=== PATIENT | male | born 1960 | race Caucasian/White ===

== ENCOUNTER 2019-05-18 10:42 | Outpatient (CLI) | payer MEDICARE, SELFPAY ==
--- NOTE | ~2019-05-18 | US_ITS ---
EXAMINATION: US venous doppler LE RT EXAM DATE: 05/18/2019 11:37 INDICATION: Right lower extremity pain. TECHNIQUE: Multiple grayscale, color flow and Doppler images of the right lower extremity deep venous system were obtained and reviewed. There is no prior study for comparison. FINDINGS: The right common femoral, femoral and profunda veins demonstrate normal color flow, respira tory variation, augmentation and compressibility. Compressibility, color flow confirmed within the r ight popliteal, posterior tibial, peroneal, and greater saphenous veins. IMPRESSION: 1. No right lower extremity deep venous thrombosis. Reviewed, dictated and finalized at location A.
== END 2019-05-18 10:43 | disposition home or self-care (01) ==
PROVIDERS: PCP Internal Medicine; Visit Provider Internal Medicine
DX: M79.604 Pain in right leg (principal)
CPT/HCPCS: 93971

== ENCOUNTER 2019-12-02 14:07 | Outpatient (RCR) | payer MEDICARE, SELFPAY ==
--- NOTE | 2019-12-03 13:53 | PTOPEVAL ---
PHYSICAL THERAPY EVALUATION AND DISCHARGE NOTE Thank you for referring Jose Luis King to [facility].? Jose Luis was seen for a power mobility device evaluation which is detailed out int he power mobility device assessment forms. Michael will be discharged from our service at this time. Please review, sign, date and return this plan of care CASIMIRO. I agree with and certify that the following plan of care is medically necessary. Referring Physician Date Attending Provider: Jose Lenz, MD Evaluation Outpatient Past Medical History Neurological History Hx Other Neurological Disorders Yes: primary lateral sclerosis - 2006 Evaluation Information Problem Diagnosis PLS - wheelchair evaluation Onset 2006 Cause progressive Subjective Information Jose Luis is here today for a Query Text:As Reported By Patient/ power wheelchair evaluation. Family He does currently only a power wheelchair; however, it is poor fitting and in poor condition. Please see scanned power mobility device evaluation for further details of history. Self Report Pain Assessment Generalized Reported Pain Level 4 PT Clinical Summary Jose Luis is a 59 yo male present to participate in power mobility device evaluation. I do recommend a power mobility device with tilt and recline as well as articulating foot rests, head rest, and flip back arm rests. All of which are necessary to promote optimal safe and independent function, prevent skin break down, improve edema management , improve pain management, and promote optimal posture and fit. Please see scanned power mobility evaluation for further details. No care plan will be developed at this time. PT Services Indicated No PT Evaluation Complexity High Complexity
== END 2020-02-15 10:11 | disposition home or self-care (01) ==
LOC: ANHPT 14:07
PROVIDERS: PCP Internal Medicine; Visit Provider Internal Medicine
DX: G12.23 Primary lateral sclerosis (principal)
CPT/HCPCS: 97163

== ENCOUNTER 2023-04-06 14:20 | Emergency (ER) | payer MEDICARE, SELFPAY ==
[2023-04-06 14:47] VITALS: BP 135/77; PULSE 56; RESP 16; TEMP 36.3; O2SAT 96
--- NOTE | 2023-04-06 15:14 | ED.RECABL ---
HPI - Recheck/Abnormal Lab/Rx General Chief Complaint: Recheck/Abnormal Lab/Rx Stated Complaint: needs med refill Time Seen by Provider: 04/06/23 15:07 Source: patient Mode of arrival: ambulatory Limitations: no limitations History of Present Illness HPI narrative: Patient is a 62-year-old male, with past medical history of PLS, who presents the ED needing medication refill. Patient reports he ran out of his gabapentin yesterday. He takes gabapentin 300mg t.i.d. for spasticity and nerve pain. He attended to contact his primary care doctor, but was unable to reach anyone over the weekend. Plans to contact his primary care doctor Saturday morning. Wanting medication refill. No other concerns. Related Data Home Medications Medication Instructions Recorded Confirmed Anti Diarrheal BYMOUTH 02/20/23 gabapentin 300 mg capsule 300 mg PO TID 02/20/23 losartan 50 mg tablet 50 mg PO DAILY 02/20/23 metoprolol succinate 50 mg 50 mg PO DAILY 02/20/23 tablet,extended release 24 hr sertraline 100 mg tablet 100 mg PO DAILY 02/20/23 Allergies Allergy/AdvReac Type Severity Reaction Status Date / Time No Known Allergies Allergy Verified 02/20/23 14:44 Review of Systems Review of Systems: CONSTITUTIONAL: Denies fever, chills, or sweats. CARDIOVASCULAR: Denies chest pain. RESPIRATORY: Denies dyspnea. MUSCULOSKELETAL: Denies pain or injury. All systems reviewed & are unremarkable except as noted in HPI and below PMFSH Past Medical History Medical History Depression Hypertension Panhypopituitarism Pituitary tumor Primary lateral sclerosis Secondary adrenal insufficiency Secondary hypothyroidism Secondary male hypogonadism Surgical History Surgical History History of pituitary surgery Family History Family History Father Acute myocardial infarction Social History Social History Smoking status: Never smoker Alcohol intake: never Substance use: never Substance use type: marijuana Other substance usage details: has a medical card Exam Narrative: GENERAL: Well appearing, obese with BMI of 39.8, non-toxic, in no acute distress. In electric wheelchair. HEAD: Normocephalic, atraumatic. RESPIRATORY: Airway patent, respirations nonlabored. CARDIOVASCULAR: Regular rate and rhythm. MUSCULOSKELETAL: No gross deformities. SKIN: Warm, dry, normal color. NEURO: A&O X3. Speech slow and effortful. PSYCHIATRIC: Appropriate mood and affect. Normal interaction. Course Vital Signs Vital signs: Vital Signs Temperature 97.3 F L 04/06/23 14:47 Pulse Rate 56 L 04/06/23 14:47 Respiratory Rate 16 04/06/23 14:47 Blood Pressure 135/77 04/06/23 14:47 Pulse Oximetry 96 04/06/23 14:47 Temperature 97.3 F L 04/06/23 14:47 Pulse Rate 56 L 04/06/23 14:47 Respiratory Rate 16 04/06/23 14:47 Blood Pressure 135/77 04/06/23 14:47 Pulse Oximetry 96 04/06/23 14:47 MDM - Recheck/Abnormal Lab/Rx Medical Records Attestation: I reviewed the patient's medical records. Discharge Plan Discharge Clinical Impression: Encounter for medication refill Patient Disposition: Home, Self-Care Condition: Stable Instructions: Antibiotic Form, Gabapentin (By mouth) Additional Instructions: Follow-up with your primary care doctor for further medication refills. Prescriptions: New gabapentin 300 mg capsule 300 mg PO TID 7 Days Qty: 21 0RF No Action losartan 50 mg tablet 50 mg PO DAILY metoprolol succinate 50 mg tablet extended release 24 hr 50 mg PO DAILY gabapentin 300 mg capsule 300 mg PO TID sertraline 100 mg tablet 100 mg PO DAILY Anti Diarrheal BYMOUTH levothyroxine 150
[2023-04-06] MEDS: GABAPENTIN 300 MG CAPSULE PO (16:02)
== END 2023-04-06 16:02 | disposition home or self-care (01) ==
LOC: ANHED 15:23
PROVIDERS: Emergency Provider Physician Assistant; PCP Internal Medicine
DX: G12.23 Primary lateral sclerosis (principal); Z76.0 Encounter for issue of repeat prescription; I10 Essential (primary) hypertension; E27.49 Other adrenocortical insufficiency; E03.8 Other specified hypothyroidism; F32.A Depression, unspecified
CPT/HCPCS: 99281; A9270

== ENCOUNTER 2024-02-10 14:07 | Outpatient (CLI) | payer MEDICARE, SELFPAY ==
--- NOTE | ~2024-02-10 | MR_ITS ---
MRI of the left hand CLINICAL HISTORY: Pain TECHNIQUE: Coronal T1-weighted and STIR images, axial T1-weighted and STIR images, and sagittal T1-we ighted and STIR images were performed. FINDINGS: There is moderate degenerative change of the first CMC joint, with minimal reactive marrow edema about the joint space. There is advanced degenerative change in the wrist, with severe degenera tive change at the radiocarpal articulations with subchondral cystic change of the distal radius high -grade chondral lesion joint space narrowing. There is prominent volar tilt of the lunate bone on sag ittal images, suggestive of VISI. There is also advanced degenerative change at the capitate lunate a rticulation. Otherwise, remaining bone marrow signals are unremarkable. No fracture or other bone marrow edema see n. No evidence for osteitis. Remaining joint spaces are intact. No joint effusion evident. There is c ollateral ligaments throughout the hand/fingers are intact. Visualized flexor tendons in the carpal tunnel are unremarkable. Extensor tendons are intact. No soft tissue mass or fluid collection evident. IMPRESSION: Prominent volar tilt of the lunate bone, suggestive of VISI. Advanced degenerative changes at the radiocarpal articulations and capitate lunate articulation. Moderate degenerative change of the first CMC joint. Reviewed, dictated and finalized at location . [facility] IMPRESSION: Prominent volar tilt of the lunate bone, suggestive of VISI. Advanced degenerative changes at the radiocarpal articulations and capitate ifeanyi ate articulation. Moderate degenerative change of the first CMC joint.
== END 2024-02-10 14:08 | disposition home or self-care (01) ==
LOC: MICIMG 14:08
PROVIDERS: PCP Internal Medicine; Visit Provider Internal Medicine
DX: M19.032 Primary osteoarthritis, left wrist (principal)
CPT/HCPCS: 73218